=== PATIENT | female | born 1985 | race Caucasian/White ===

== ENCOUNTER 2020-08-13 10:06 | Emergency (ER) | payer MEDICAID, SELFPAY ==
[2020-08-13 10:54] VITALS: BP 124/72; PULSE 121; RESP 20; TEMP 37.3; O2SAT 100
--- NOTE | 2020-08-13 11:28 | ED.GENADULT ---
HPI - General Adult General Chief complaint: Upper Respiratory Infection Stated complaint: upper respiratory infection Source: patient Mode of arrival: ambulatory Limitations: no limitations History of Present Illness HPI narrative: Patient presents for evaluation of multiple complaints. Over the course of the last 15 days she has had several symptoms for which she is concerned. Symptoms include fever, chills, nausea, vomiting, abdominal pain, diarrhea, body aches, dizziness, sore throat, dry cough. All the symptoms have varied in duration. She currently lives with her parents and her brother, none of whom are currently sick. She indicates that her mother did have a headache around the time of her symptom onset. She has no underlying medical problems. She states her last menstrual period was just prior to the aforementioned symptoms. She has had difficulty keeping food down and consequently has taken minimal amount of medication. She states she took an [id number] painkiller yesterday. Today she has some body aches and fatigue. She has not had any chest pain or shortness of breath. She is not on contraception. Related Data Allergies Allergy/AdvReac Type Severity Reaction Status Date / Time No Known Allergies Allergy Verified 08/13/20 11:23 Review of Systems Review of Systems: Narrative: CONSTITUTIONAL: Reports fever and chills EYES: Denies visual changes, redness, or discharge. ENT: Denies rhinorrhea, congestion. Reports sore throat CARDIOVASCULAR: Denies chest pain, palpitations, or edema. RESPIRATORY: Dry cough. Denies shortness of breath GASTROINTESTINAL: Reports abdominal pain, nausea, vomiting, diarrhea. GENITOURINARY: Denies dysuria or hematuria. SKIN: Denies rash or itching. MUSCULOSKELETAL: Reports generalized myalgias NEUROLOGIC: Reports headaches, numbness and tingling in extremities. PSYCHIATRIC: Denies anxiety or depression. [facility] Past Medical History Medical History (Updated 08/13/20 @ 12:04 by Daljit Segura, [place], [place]) No pertinent past medical history Surgical History Surgical History History of bunionectomy Family History Family History Father Hypertension Heart disease Mother No pertinent past medical history Social History Social History Smoking status: Never smoker Alcohol intake: never Substance use: never Living arrangements: with family Occupation/Education: unemployed Gender identity (if verbalized by the patient): Female Spiritual care concerns: No Exam Narrative: Exam Narrative: GENERAL: Well-appearing, well-nourished, and in no acute distress. HEAD: Normocephalic, atraumatic. EYES: PERRLA and EOMI. ENT: Nares clear, no rhinorrhea or epistaxis. Mucous membranes moist. Oropharynx without tonsillar hypertrophy exudate or other lesions. Bilateral TMs pearly flores nonbulging NECK: Supple. No adenopathy or masses. No carotid bruits or JVD CHEST: Clear to auscultation. No respiratory distress. No wheezes rales or rhonchi HEART: Regular rate and rhythm. No murmur heard. Normal peripheral pulses. ABDOMEN: Soft, nontender, nondistended, normal active bowel sounds. EXTREMITIES: Normal range of motion. No edema. SKIN: Warm, dry, no rash. NEURO: No focal deficits. Alert and oriented x3. PSYCH: Normal mood and affect. Course Course Emergency Course: This is a 34-year-old female that presents with 15-days worth of multiple complaints that consist of fever, chills, nausea, vomiting, diarrhea, myalgias, headache, dizziness, dry cough. No recent identified sick contacts. Her strep, flu, mono were negative. She did have leukocytes in her urine so we will send for culture and treat empirically with Keflex. She declined chest x-ray due to cost that she is currently self-pay. I did advise t
[2020-08-13 12:17] VITALS: PULSE 120
[2020-08-13 12:23] VITALS: PULSE 122
== END 2020-08-13 12:33 | disposition home or self-care (01) ==
PROVIDERS: Emergency Provider Nurse Practitioner
DX: B34.9 Viral infection, unspecified (principal); N30.00 Acute cystitis without hematuria
CPT/HCPCS: 36416; 81003; 86308; 87081; 87086; 87088; 87804; 87880; 99203; G0463

== ENCOUNTER 2020-08-14 11:34 | Observation (INO) | payer MEDICAID, SELFPAY ==
--- NOTE | ~2020-08-14 | XR_ITS ---
EXAMINATION: XR chest 1V portable 08/14/2020 12:34 INDICATION: Tachycardia PROCEDURE: AP portable chest COMPARISON: No prior studies for comparison. FINDINGS: The lungs are clear. The cardiomediastinal silhouette is within normal limits. There are no pleural effusions. There is no pneumothorax suspected. IMPRESSION: 1: NO ACUTE CARDIOPULMONARY DISEASE. Reviewed, dictated and finalized at location A. AL INSPECTOR
--- NOTE | ~2020-08-14 | US_ITS ---
EXAMINATION: US pelvic complete w TV EXAM DATE: 08/14/2020 17:51 INDICATION: Right ovarian mass noted on CT. Pelvic mass. TECHNIQUE: Pelvic transabdominal and transvaginal sonogram was performed. There are multiple graysca le and Doppler images available for interpretation. Comparison is made to prior examination from 08/01. FINDINGS: Uterus measures 8.9 x 4.5 x 5.5 cm, with a fundal fibroid for the right measuring 2.8 cm m aximal dimension. Endometrial stripe measures 6 mm, within normal limits. There is trace free pelvic fluid. Right adnexa: The ovary measures 4.6 x 5.1 x 4.2 cm, most of this volume caused by complex cystic fis hnet appearing lesion measuring 4.5 x 3.6 x 3.4 cm, appearance most consistent with a hemorrhagic cys t. Ovarian vascular flow confirmed. Left adnexa: The ovary measures 1.5 x 2.5 x 1.6 cm and is morphologically normal. Ovarian vascular fl ow confirmed. IMPRESSION: 1. Right ovarian 4 cm lesion appearance most consistent with hemorrhagic cyst; consider 6 week follo w-up pelvic sonogram. 2. Fibroid. Reviewed, dictated and finalized at location A. [employer]AT IMPRESSION: 1. Right ovarian 4 cm lesion appearance most consistent with hemorrhagic cyst; consider 6 week follow-up pelvic sonogram. 2. Fibroid.
--- NOTE | ~2020-08-14 | CT_ITS ---
EXAMINATION: CT abdomen pelvis w con DATE: 08/14/2020 13:36 INDICATION: Leukocytosis. TECHNIQUE: Computed tomography (CT) of the abdomen and pelvis was performed with 100 mL Omnipaque 350 intravenous contrast. Automated exposure control and iterative reconstruction technique were employe d. The dose-length product was 1015.66 mGy-cm. COMPARISON: None. FINDINGS: The visualized portions of the lung bases demonstrate mild atelectasis. No pleural effusion . The heart size is normal. No pericardial effusion. There is diffuse hepatic steatosis. The gallblad josephine, spleen, pancreas, adrenal glands, and kidneys are normal. There is a 4.3 cm mass in right ovary. There are no dilated loops of bowel. The appendix is normal. There are no pathologically enlarged ly mph nodes. There is a small volume of pelvic ascites. There is a tampon in the vagina. There is mild lumbar spondylosis. IMPRESSION: 1. 4.3 cm mass in right ovary, most likely a hemorrhagic cyst. Pelvis ultrasound is recommended. Reviewed, dictated and finalized at location A. BOX COVERER IMPRESSION: 1. 4.3 cm mass in right ovary, most likely a hemorrhagic cyst. Pelvis ultrasoun d is recommended.
[2020-08-14 11:39] VITALS: BP 124/82; PULSE 132; RESP 24; TEMP 36.6; O2SAT 97
--- NOTE | 2020-08-14 11:46 | ECG_ITS ---
Measurements Intervals [place] Rate: 124 P: 66 IA: 124 QRS: 62 QRSD: 88 T: -50 QT: 276 QTc: 397 Interpretive Statements SINUS TACHYCARDIA ST-T WAVE ABNORMALITY IN ANTEROLAT/INF LEADS- CONSIDER ISCHEMIA ABNORMAL ECG Electronically Signed On 08-14-2020 12:10:46 POLEYARD SUPERVISOR by Oscar Gurrola D.O.
[2020-08-14 12:12] LABS: Basophils Absolute Auto 0.1 K/mm3 (0.0-0.1); Basophils Percent Auto 0.3 % (0.2-1.2); Eosinophils Percent Auto 0.1 % (0-4.4); Hematocrit 40.9 % (37.0-47.0); Hemoglobin 14.1 g/dL (12.0-15.0); Immature Granulocyte Absolute 1.48 K/mm3 (0.00-0.031); Immature Granulocyte Percent A 4.9 % (0-0.5); Lymphocytes Absolute Auto 0.88 K/mm3 (0.9-3.2); Lymphocytes Percent Auto 2.9 % (18.3-44.2); Mean Corpuscular HGB Conc 34.5 g/dl (32-36); Mean Corpuscular Hemoglobin 29.3 pg (26-34); Mean Platelet Volume 11.1 fl (7.4-10.4); Monocytes Absolute Auto 0.6 K/mm3 (0.1-0.6); Neutrophils Absolute Auto 27.2 K/mm3 (1.3-6.7); Neutrophils Percent Auto 89.8 % (45.5-73.1); Platelet Count Result 339 k/mm3 (150-375); Red Blood Count 4.81 M/mm3 (4.2-5.4); White Blood Count 30.2 K/mm3 (4.5-10.0)
[2020-08-14 12:28] LABS: Alanine Aminotransferase 18 U/L (4-35); Albumin Level 3.8 g/dL (3.5-5.1); Alkaline Phosphatase 87 U/L (38-126); Anion Gap 10 mmol/L (8-16); Aspartate Amino Transferase 21 U/L (14-36); Bilirubin,Total 0.9 mg/dL (0.2-1.3); Blood Urea Nitrogen 6 mg/dL (7-17); Calcium 9.3 mg/dL (8.4-10.2); Carbon Dioxide 26 mmol/L (22-30); Chloride 99 mmol/L (98-107); Estimated CRCL calculation 116 ml/min; Estimated Glomerular Filt Rate > 60; Glucose 135 mg/dL (65-105); Potassium 3.8 mmol/L (3.4-5.0); Sodium 135 mmol/L (137-145)
--- NOTE | 2020-08-14 12:43 | ED.GENADULT ---
HPI - General Adult General Chief complaint: Fever Stated complaint: n/v, fever, chills, muscle aches Time Seen by Provider: 08/14/20 11:40 Source: patient Mode of arrival: ambulatory Limitations: no limitations History of Present Illness HPI narrative: 34-year-old female Complains of a slightly more than 2-week history of almost every symptom Including at various times headaches sore throats abdominal pains nausea poor intake severe muscle aches and subjective fevers Almost the only things she has not had are dysuria or a productive cough or rash Seemed to initially start with some mild abdominal complaints and then all the other symptoms have ensued at various times She was evaluated yesterday at an urgent care and had testing done for non-Covid viral illnesses which was all negative and was treated presumptively for a possible UTI with Keflex and was asked to report to the ER for additional testing but wanted to try going home first, but has not improved Onset (ago): day(s) Related Data Home Medications Medication Instructions Recorded Confirmed acetaminophen 500 mg PO Q6H PRN 08/14/20 08/14/20 Allergies Allergy/AdvReac Type Severity Reaction Status Date / Time No Known Allergies Allergy Verified 08/14/20 11:48 Review of Systems Review of Systems: All systems reviewed & are unremarkable except as noted in HPI and below Constitutional: Constitutional: Reports chills, Reports fatigue, Reports fever(s), Denies headache(s) and Reports weakness Eyes: Eyes: Reports no additional eye complaints and Denies change in vision ENT: Denies headache(s), Denies epistaxis, Denies nasal congestion and Reports sore throat Cardiovascular: Cardiovascular: Denies chest pain, Denies leg edema, Denies palpitations and Denies dyspnea Respiratory: Respiratory: Denies cough, Denies dyspnea and Denies wheezing Gastrointestinal: Gastrointestinal: Reports abdominal pain, Denies constipation, Denies diarrhea, Reports nausea and Denies vomiting Genitourinary: Genitourinary: Denies hematuria, Denies urinary frequency, Denies nocturia and Denies dysuria Musculoskeletal: Musculoskeletal: Reports back pain, Reports myalgias, Denies deformity, Reports arthralgias, Denies joint swelling, Denies muscle weakness and Denies numbness Integumentary/Breasts: Skin/Breast: Denies rash and Denies wounds Neurologic: Reports headache(s), Denies focal weakness, Denies numbness and Denies weakness Psychiatric: Psychiatric: Reports no additional psychiatric complaints Endocrine: Endocrine: Reports fatigue and Denies palpitations Hematologic/Lymphatic: Hematologic/Lymphatic: Denies easy bleeding and Denies easy bruising Allergic/Immunologic: Allergic/Immunologic: Denies wheezing PMFSH Past Medical History Medical History (Updated 08/14/20 @ 13:34 by Alejandro Paul MD) No pertinent past medical history Surgical History Surgical History History of bunionectomy Family History Family History Father Hypertension Heart disease Mother No pertinent past medical history Social History Social History Smoking status: Never smoker Alcohol intake: never Substance use: never Gender identity (if verbalized by the patient): Female Spiritual care concerns: No Exam Const: General: no acute distress, well developed, alert and awake Nutritional Appearance: well nourished Orientation/consciousness: patient oriented x3 (alert) Limitations: no limitations HENMT: Head: normal to inspection, normocephalic and atraumatic Ears: external ears normal General nose exam: No nasal discharge present and no epistaxis Face and sinus: face symmetric Eyes: Conjunctivae: conjunctivae normal Sclera: sclerae normal EOM: EOMs intact bilaterally Neck: Neck: normal visu
[2020-08-14 12:53] LABS: Lipase 31 U/L (23-300)
[2020-08-14 12:54] LABS: Lactic Acid Reflex 2.3 mmol/L (0.7-2.1)
[2020-08-14 12:55] LABS: CRP 32.2 mg/dL (<1.0)
[2020-08-14] MEDS: LACTATED RINGERS 1,000 ML 999 ML IV CONT ×2 (13:01→14:12)
[2020-08-14] MEDS: ACETAMINOPHEN 500 MG TABLET 1000 MG PO (13:01)
[2020-08-14 13:28] LABS: D Dimer 0.31 ug/mL (<0.48)
[2020-08-14 13:29] LABS: Creatine Kinase 25 U/L (30-135)
[2020-08-14 13:45] VITALS: BP 124/82; PULSE 109; RESP 23; O2SAT 98
[2020-08-14 13:47] LABS: Free T4 Free Thyroxine 1.69 ng/mL (0.78-2.19)
[2020-08-14 14:11] VITALS: BP 104/67; PULSE 102; RESP 18; O2SAT 100
--- NOTE | 2020-08-14 15:32 | ADMGEN ---
This patient, Ariadna Mcneil, was admitted to [facility] Surg Room 329-01. Patient/family oriented to hospital policies and general routines including ID bracelet, bed and alarms, visiting hours, pain management, procedures, bathroom and other care routines, personal items, smoking policy, room service/diet, and visiting hours. Information on how to activate the Rapid Response Team has been discussed. Patient/Family are encouraged to report perceived risks to care and to ask questions if they do not understand what they are told or what they should do.
[2020-08-14 15:35] VITALS: BP 99/67; PULSE 108; RESP 18; TEMP 36.7; O2SAT 100
[2020-08-14 15:40] VITALS: BMI 28.0
[2020-08-14 15:46] LABS: Reflex Lactic Acid Yes or No Add Lactic
[2020-08-14 16:40] LABS: Lactic Acid 1.2 mmol/L (0.7-2.1)
--- NOTE | 2020-08-14 17:20 | PC.NURSE ---
patient to US per w/c
--- NOTE | 2020-08-14 17:55 | PC.NURSE ---
patient returning from US.
[2020-08-14] MEDS: ACETAMINOPHEN 325 MG TABLET 650 MG PO (18:54)
[2020-08-14 19:11] LABS: Add Urine Microscopic? YES; Appearance Urine Clear (Clear); Bacteria Urine Trace /hpf; Bilirubin Urine Negative (Negative); Blood Urine 1+ (Negative); Color Urine Yellow (Yellow); Glucose Urine UA Negative (Negative); Ketones Urine 1+ mg/dL (Negative); Leukocyte Esterase Ur 3+ LEU/UL (Negative); Mucus Urine Rare /lpf; Nitrate Urine Negative (Negative); Protein Urine 1+ mg/dL (Negative); Squamous Epithelial Cell Urine Many /hpf (Few); WBC Urine 21-30 /hpf
[2020-08-14 19:12] LABS: Specific Grav Ur 1.056 (1.001-1.035)
[2020-08-14 20:00] VITALS: BP 111/62; PULSE 110; RESP 20; TEMP 36.7; O2SAT 100
--- NOTE | 2020-08-14 20:00 | PM.IMHP ---
H&P: HPI History of Present Illness Date/Time: 08/14/20 20:00 Chief complaint: Multiple complaints. Narrative: Ariadna Mcneil is a very pleasant, previously healthy 34-year-old female who presented to the emergency department earlier today from home with multiple complaints. Her story is unusual, and she first began feeling poorly the Friday after Thanksgi ( 07/29/2020) at which time she notes generalized malaise. The following day she developed nausea and vomiting, estimating that she vomited 16 to 20 times for the next 4 days. She had several episodes of diarrhea a day as well, which lasted nearly 1 week. Her throat then began to feel sore, occasionally with difficulty swallowing due to the pain which she describes as a sharp and almost knife-like pain. For nearly a week she had subjective fever and however there was no thermometer at home. She currently lives with her parents and brother, and none of them have had similar symptoms however her mother did have a headache a day or so after Thanksgi. The patient herself also has a dull, aching mainly frontal headache which has been almost constant. She was seen at urgent care yesterday for evaluation as she has more recently been having diffuse myalgias. She tested negative for influenza, strep, and mononucleosis. A urinalysis was leukocyte esterase positive and she was given a prescription for cephalexin however she has no symptoms of such and her urine culture is now final, growing out multiple organisms not indicative of UTI. She was tachycardic at that time, in the 110s to 120s, although she is asymptomatic with that. The physician who saw her at [facility] encouraged her to come to the emergency department yesterday however she declined due to lapse in insurance. Since then she has had progressive myalgias to the point where she has a difficult time moving due to severe pain. It is now to the point where she has significant pain even lifting her arms and legs. It sounds as though the pain is sharp and shooting in nature when moving, and is aching at rest. She denies recent travel but within the last several months she moved back to the area to stay with her parents as she is in between jobs. Prior to that she was living in [place]. She considers herself and indoorsy type person and denies tick bites and mosquito bites over the summer despite being in [place]. She has not had a documented fever. No history of IV drug use. She denies open wounds. No angioedema or urticaria although she does note palmar erythema and pruritus which began about the same time as her other symptoms. She denies vertigo, ataxia, auditory and visual changes, focal weakness, joint swelling, rash, midline vertebral tenderness, lymphadenopathy, dysphagia, chest pain, palpitations, cough, shortness of breath, hematemesis, melena, hematochezia, dysuria, hematuria, vaginal discharge, concerns for STIs, abdominal pain, and pelvic pain. No history of autoimmune disease or malignancy. Review of Systems Review of Systems: Narrative: 12 systems were reviewed with pertinent positives and negatives as per HPI. She lost a few lb with the vomiting and diarrhea but that has since stabilized. No history of thyroid disease or symptoms of such. Last menstrual period was approximately 3 weeks ago. No jaw claudication. No depression, anxiety, or psychiatric illness. Except as documented, all other systems were reviewed and are negative. [facility] Past Medical History Medical History (Updated 08/15/20 @ 00:23 by Estela Chaney PA-C) No pertinent past medical history Surgical History Surgical History (Updated 08/15/20 @ 00:23 by Estela Chaney PA-C) History of bunionectomy of left great toe (~2009) Family History Family History (Updated 08/15/20 @ 00:13 by Estela Chaney PA-C) Father Hypertension Heart disease Mother No pertinent past medical history Sibling Harrison syndrome Social History Soc
[2020-08-14 23:00] LABS: SARS-CoV-2 RNA PCR Negative
[2020-08-15] VITALS: BP 112/62; PULSE 105; RESP 20; TEMP 36.9; O2SAT 100
[2020-08-15] MEDS: ACETAMINOPHEN 325 MG TABLET 650 MG PO (02:35)
[2020-08-15 04:00] VITALS: BP 114/83; PULSE 104; RESP 18; TEMP 36.9; O2SAT 97
[2020-08-15] MEDS: LACTATED RINGERS 1,000 ML 150 ML IV CONT (04:01)
[2020-08-15] MEDS: SODIUM CHLORIDE 0.9% IV 1,000 ML 100 ML IV CONT (06:18)
[2020-08-15 06:50] LABS: Basophils Percent Auto 0.2 % (0.2-1.2); Eosinophils Absolute Auto 0.1 K/mm3 (0-0.3); Eosinophils Percent Auto 0.3 % (0-4.4); Hematocrit 33.7 % (37.0-47.0); Hemoglobin 11.3 g/dL (12.0-15.0); Immature Granulocyte Percent A 0.6 % (0-0.5); Lymphocytes Absolute Auto 1.09 K/mm3 (0.9-3.2); Lymphocytes Percent Auto 6.4 % (18.3-44.2); Mean Corpuscular HGB Conc 33.5 g/dl (32-36); Mean Corpuscular Hemoglobin 28.6 pg (26-34); Mean Corpuscular Volume 85.3 fl (80-100); Mean Platelet Volume 11.1 fl (7.4-10.4); Monocytes Absolute Auto 0.3 K/mm3 (0.1-0.6); Neutrophils Absolute Auto 15.3 K/mm3 (1.3-6.7); Neutrophils Percent Auto 90.5 % (45.5-73.1); Platelet Count Result 291 k/mm3 (150-375); Red Blood Count 3.95 M/mm3 (4.2-5.4); Red Cell Distribution Width 13.9 % (11.5-14.5); White Blood Count 16.9 K/mm3 (4.5-10.0)
[2020-08-15 07:17] LABS: Erythrocyte Sedimentation Rate 56 mm/hr (0-20)
[2020-08-15 07:38] LABS: Vitamin D 25 Hydroxy 18.4 ng/mL
[2020-08-15 07:51] LABS: Creatine Kinase < 20 U/L (30-135)
[2020-08-15 07:52] LABS: Alanine Aminotransferase 13 U/L (4-35); Alkaline Phosphatase 70 U/L (38-126); Anion Gap 6 mmol/L (8-16); Aspartate Amino Transferase 15 U/L (14-36); Bilirubin,Total 0.5 mg/dL (0.2-1.3); Blood Urea Nitrogen 6 mg/dL (7-17); Calcium 8.6 mg/dL (8.4-10.2); Carbon Dioxide 26 mmol/L (22-30); Chloride 103 mmol/L (98-107); Estimated CRCL calculation 153 ml/min; Estimated Glomerular Filt Rate > 60; Glucose 107 mg/dL (65-105); Lactate Dehydrogenase 306 U/L (313-618); Potassium 3.2 mmol/L (3.4-5.0); Sodium 135 mmol/L (137-145)
[2020-08-15 07:57] LABS: CRP 28.4 mg/dL (<1.0)
[2020-08-15] MEDS: traMADol HCL (*CRX) 50 MG TABLET PO ×3 (08:35→21:46)
[2020-08-15] MEDS: POTASSIUM CHLORIDE 20 MEQ TABLET 40 MEQ PO (08:35)
--- NOTE | 2020-08-15 11:23 | WPDNEURCNPN ---
Assessment and Plan Assessment and plan (1) Systemic inflammatory response syndrome: Code(s): R65.10 - Systemic inflammatory response syndrome (SIRS) of non-infectious origin without acute organ dysfunction Status: Acute (2) Myalgia: Code(s): M79.10 - Myalgia, unspecified site Status: Acute (3) Mass of right ovary: Code(s): N83.8 - Other noninflammatory disorders of ovary, fallopian tube and broad ligament Status: Acute (4) Leukocytosis: Code(s): D72.829 - Elevated white blood cell count, unspecified Status: Acute Additional Plan Multiple generalized complaints ,nonfocal neurological examination though she does have leukocytosis with elevated CRP and abnormal UA further evaluation is being carried out, CK is less than 20 and cultures are pending will follow recheck her tomorrow Consult date: 08/15/20 Time Seen: 11:20 HPI: Ariadna Mcneil is a 34 year old right-handed female admitted to the hospital through the emergency room with the complaints that he started feeling poorly by Friday after Thanksgiving that is on July 29, 2020 along with the generalized malaise subsequently she developed nausea and vomiting 16 to 20 times with the next 4 days along with several episodes of diarrhea lasting for almost 1 week subsequently her throat became sore, fecal disease in swallowing she lives with the family none of the other family members had the same symptomatology but she had dull frontal headache she was seen in the urgent care yesterday for evaluation and at present she is complaining of diffuse muscle aches he tested negative for influenza a strep mono a urine leukocyte esterase is positive she received a prescription for cephalexin with a urine culture is not final growing multiple organism she is complaining of pain lifting her upper and lower extremities, has no other general symptomatology. pertinent history includes Clovis syndrome in sibling. Evaluation up until now revealed her to have leukocytosis with WBC 16.9 hemoglobin 11.3 and platelet count of 291 BMP only significant for potassium of 3.2 C reactive protein is 28.4 with CPK only less than 20 and aldolase is pending vitamin-D 18.4 urine specific gravity 1056 x-ray chest negative and pelvic and transvaginal ultrasound and abdominal pelvis CT are compatible with the right ovarian hemorrhagic cyst, at present she is receiving IV fluids Review of Systems Review of Systems: All systems reviewed & are unremarkable except as noted in HPI and below PMFSH Past Medical History Medical History No pertinent past medical history Surgical History Surgical History History of bunionectomy of left great toe (~2009) Family History Family History Father Hypertension Heart disease Mother No pertinent past medical history Sibling Harrison syndrome Social History Social History Social History: The patient is currently living in [place] with her parents and brother. Prior to that she was living in [place]. 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 She denies alcohol, tobacco, and illicit substance abuse. She designates her mother as her surrogate decision maker and wishes to be a full code. Gender identity (if verbalized by the patient): Female Spiritual care concerns: No Meds Home Medications and Allergies Home Medications Medication Instructions Recorded Confirmed Type cephalexin [Keflex] 500 mg PO Q12H #14 cap 08/13/20 08/14/20 Rx ondansetron 4 mg PO Q6H PRN #15 tablet 08/13/20 08/14/20 Rx acetaminophen 500 mg PO Q6H PRN 08/14/20 08/14/20 History Allergies Allergy/AdvReac Type Severity Reaction Status Date / Time No Known Allergies Allergy Verified 08/14/20 17:21 Vital Signs Vital Signs
--- NOTE | 2020-08-15 13:30 | PC.NURSE ---
faxed SBAR to [facility], pt will be moving units due to bed availability
[2020-08-15 14:00] VITALS: BP 112/69; PULSE 108; RESP 16; TEMP 36.2; O2SAT 99
--- NOTE | 2020-08-15 14:02 | PC.NURSE ---
report called to Khushbu SANTIAGO, reviewed plan of care and pt condition
[2020-08-15 14:48] VITALS: BP 118/74; PULSE 113; RESP 18; TEMP 36.5; O2SAT 98
--- NOTE | 2020-08-15 14:50 | PC.NURSE ---
pt transferred to [facility] via wheelchair, doing well, in good spirits
--- NOTE | 2020-08-15 14:59 | PC.NURSE ---
Yovany arrived per wheelchair with APPEALS BOARD REFEREE stood by asst to her been 219 bed 1. Placed bed in low position with call light in reach. Iv hep lock is intact fluids are off. Pt c/o generalized pain head to toe that is achy and intermittently sharp at a 7/10. Medicated with 50 mg of Tramadol po.
--- NOTE | 2020-08-15 15:28 | PM.IMPN ---
Progress Note: A&P Assessment and Plan (1) Systemic inflammatory response syndrome: Code(s): R65.10 - Systemic inflammatory response syndrome (SIRS) of non-infectious origin without acute organ dysfunction Status: Acute Assessment and Plan: Culture so far negative urine and blood. No white count has fallen. Rehydrated and nausea and vomiting has subsided. CK normal with elevated sed rate of 56. Await final results of cultures and follow white count Echo pending (2) Myalgia: Code(s): M79.10 - Myalgia, unspecified site Status: Acute Assessment and Plan: As above CK normal without Solange pending and sed rate slightly elevated. Nonspecific finding at this point (3) Leukocytosis: Code(s): D72.829 - Elevated white blood cell count, unspecified Status: Acute Assessment and Plan: Probable stress from nausea vomiting. White count dropped to 16,000 today and will follow-up in a.m. and await final results of cultures Echo pending (4) Mass of right ovary: Code(s): N83.8 - Other noninflammatory disorders of ovary, fallopian tube and broad ligament Status: Acute Assessment and Plan: Sees to be simple hemorrhagic cyst will need follow-up in the future Subjective Date/time seen: 08/15/20 15:28 Interval history: Date of visit 08/15. 34-year-old previously healthy white female admitted with myalgias, nausea and vomiting and malaise. Been using anti-inflammatories for the pain without relief. No recent travel her suggestion of any acute infectious process but had marked leukocytosis on admission. Today feels better GI ricardo but still sore and pain, significantly CK is normal Exam Narrative: Exam Narrative: Blood pressure 118/74 pulse is 110 she is afebrile Neck supple no adenopathy thyromegaly carotid bruits Lungs clear no murmurs or gallops CV regular rate rhythm no murmurs slightly tacky Abdomen is soft nontender no masses Extremities without edema Integument no rash there is some Balderas erythema Objective Data Vital Signs Vital Signs: Vital Signs - 24 hr 08/14/20 15:35 08/14/20 20:00 08/15/20 00:00 Temperature 36.7 C 36.7 C 36.9 C Pulse Rate 108 H 110 H 105 H Respiratory Rate 18 20 20 Blood Pressure 99/67 L 111/62 112/62 Pulse Oximetry 100 100 100 08/15/20 04:00 08/15/20 14:00 08/15/20 14:48 Temperature 36.9 C 36.2 C L 36.5 C Pulse Rate 104 H 108 H 113 H Respiratory Rate 18 16 18 Blood Pressure 114/83 112/69 118/74 Pulse Oximetry 97 99 98 Intake/Output Intake/Output: Intake & Output 08/12/20 08/13/20 08/14/20 08/15/20 23:59 23:59 23:59 23:59 Intake Total 1250 800 Output Total 1000 Balance 1250 -200 Meds/Results Medications: Active Medications Generic Name Dose Route Start Last Admin Trade Name Freq PRN Reason Stop Dose Admin Acetaminophen 650 mg 08/14/20 13:34 08/15/20 02:35 Acetaminophen 325 Mg Tablet PO 650 mg Q4H PRN Administration Mild Pain (1-3) or Fever Ondansetron HCl 4 mg 08/14/20 13:34 Ondansetron Inj 4 Mg/2 Ml Vial IV PUSH Q4H PRN Nausea Tramadol HCl 50 mg 08/15/20 07:55 08/15/20 14:55 Tramadol Hcl (*Crx) 50 Mg Tablet PO 50 mg Q6H PRN Administration Pain Rated 4-6 Radiology Results: ITS Impressions Chest X-Ray 08/14/20 12:37 IMPRESSION: 1: NO ACUTE CARDIOPULMONARY DISEASE. Abdomen/Pelvis CT 08/14/20 13:51 IMPRESSION: 1. 4.3 cm mass in right ovary, most likely a hemorrhagic cyst. Pelvis ultrasound is recommended. Pelvic/Transvag US 08/14/20 17:59 IMPRESSION: 1. Right ovarian 4 cm lesion appearance most consistent with hemorrhagic cyst; consider 6 week follow-up pelvic sonogram. 2. Fibroid. Labs Labs: Laboratory Results - last 24 hr 08/14/20 08/14/20 08/14/20 11:52 16:21 19:01 WBC RBC Hgb Hct MCV MCH MCHC RDW Plt Count MPV Immature Gran % (Auto) Neut % (Auto)
[2020-08-15] MEDS: ERGOCALCIFEROL 50,000 UNIT CAPSULE 50000 UNITS PO (17:00)
--- NOTE | 2020-08-15 17:07 | PDONCCN ---
HPI - Date of Consult Date/Time: 08/15/20 17:07 Requesting Physician: Chen Tsang MD Primary Care Provider: VAN LOADER PHYSICIAN - Consult Narrative Reason for consult: Leukocytosis Narrative: Ariadna Mcneil is a 34 year old female who has been in good health the lab generalized myalgia along with feeling tired and fatigue and malaise about 2 weeks ago. She also developed intermittent nausea vomiting and diarrhea. She was complaining of sore throat. She was tested negative for COVID infection. She denies any chest pain and shortness of breath. He denies any rash. Due to generalized musculoskeletal pain she was having difficulty with ambulation. Her labs showed elevated WBC count of 30,000 on admission. She had CT scan done that showed 4.3 cm mass in the right ovary.. Pelvic ultrasound showed likely hemorrhagic cyst. Today she is already feeling better. Denies any further nausea and diarrhea. Denies any fevers and chills. Her white count has improved and down to 16,000. Denies any new lump lungs and lymphadenopathy. She has lost 11 lb weight in last 2-3 weeks. Review of Systems - Review of Systems All systems reviewed & are unremarkable except as noted in HPI and bel - Neurologic Reports headache(s), Denies focal weakness, Denies numbness, Denies weakness PMFSH Medical History: Medical History (Last Reviewed 08/15/20 @ 11:31 by Raoul Jon MD) No pertinent past medical history Surgical History: Surgical History (Last Reviewed 08/15/20 @ 11:31 by Raoul Jon MD) History of bunionectomy of left great toe Onset Date: ~2009 Family History: Family History (Last Reviewed 08/15/20 @ 11:31 by Raoul Jon MD) Father Hypertension Heart disease Mother No pertinent past medical history Sibling Harrison syndrome - Social History Social History: Social History (Last Reviewed 08/15/20 @ 11:31 by Raoul Jon MD) Gender Identity: Gender identity (if verbalized by the patient): Female Others: Spiritual care concerns: No Meds Home Medications Medication Instructions Recorded Confirmed Type cephalexin [Keflex] 500 mg PO Q12H #14 cap 08/13/20 08/14/20 Rx ondansetron 4 mg PO Q6H PRN #15 tablet 08/13/20 08/14/20 Rx acetaminophen 500 mg PO Q6H PRN 08/14/20 08/14/20 History Allergies Allergy/AdvReac Type Severity Reaction Status Date / Time No Known Allergies Allergy Verified 08/14/20 17:21 Results - Labs CBC & Chem 7: 08/15/20 06:33 08/15/20 06:33 Labs: Short CBC 08/15/20 Range/Units 06:33 WBC 16.9 H (4.5-10.0) K/mm3 Hgb 11.3 L (12.0-15.0) g/dL Hct 33.7 L (37.0-47.0) % Plt Count 291 (150-375) k/mm3 BMP 08/15/20 06:33 Sodium 135 L Potassium 3.2 L Chloride 103 Carbon Dioxide 26 BUN 6 L Creatinine 0.50 L Glucose 107 H Calcium 8.6 Cardiac Enzymes 08/15/20 Range/Units 06:33 Total Creatine Kinase < 20 L (30-135) U/L Liver Function 08/15/20 Range/Units 06:33 Total Bilirubin 0.5 (0.2-1.3) mg/dL AST 15 (14-36) U/L ALT 13 (4-35) U/L Alkaline Phosphatase 70 (38-126) U/L Albumin 3.0 L (3.5-5.1) g/dL Urine 08/14/20 Range/Units 19:01 Urine Color Yellow (Yellow) Urine Appearance Clear (Clear) Urine pH 5.0 (5.0-9.0) Ur Specific [place] 1.056 H (1.001-1.035) Urine Protein 1+ H (Negative) mg/dL Urine Glucose (UA) Negative (Negative) mg/dL Assessment and Plan - Additional Plan Leukocytosis. This is a pleasant 34-year-old female who has been in good health the low sudden onset of musculoskeletal discomfort malaise, nausea vomiting and diarrhea. CT scan only showed 4.3 cm right ovarian cyst likely hemorrhagic cyst. She denies any fever chills. She has lost 11 lb weight just recently. On my examination there is no evidence of lymphadenopathy and hepatosplenomegaly. CT scan also showed no evidence of hepatosplenomegaly. Re
--- NOTE | 2020-08-15 17:22 | PC.NURSE ---
pt transferred via wheelchair to [facility], doing well, in good spirits
--- NOTE | 2020-08-15 17:36 | WPDINFPN2 ---
Progress Note: A&P Assessment and Plan (1) Leukocytosis: Code(s): D72.829 - Elevated white blood cell count, unspecified Status: Acute Assessment and Plan: leukocytosis, unknown cause, no infection identified yet. Myalgias are her most prominent symptom. REC studies in process, no empiric antimicrobials. Subjective Date/time seen: 08/15/20 17:36 Objective Data Vital Signs Vital Signs: Vital Signs - 24 hr 08/14/20 20:00 08/15/20 00:00 08/15/20 04:00 Temperature 36.7 C 36.9 C 36.9 C Pulse Rate 110 H 105 H 104 H Respiratory Rate 20 20 18 Blood Pressure 111/62 112/62 114/83 Pulse Oximetry 100 100 97 08/15/20 14:00 08/15/20 14:48 Temperature 36.2 C L 36.5 C Pulse Rate 108 H 113 H Respiratory Rate 16 18 Blood Pressure 112/69 118/74 Pulse Oximetry 99 98 Intake/Output Intake/Output: Intake & Output 08/12/20 08/13/20 08/14/20 08/15/20 23:59 23:59 23:59 23:59 Intake Total 1250 800 Output Total 1000 Balance 1250 -200 Meds/Results Medications: Active Medications Generic Name Dose Route Start Last Admin Trade Name Freq PRN Reason Stop Dose Admin Acetaminophen 650 mg 08/14/20 13:34 08/15/20 02:35 Acetaminophen 325 Mg Tablet PO 650 mg Q4H PRN Administration Mild Pain (1-3) or Fever Enoxaparin Sodium 40 mg 08/15/20 21:00 Enoxaparin 40 Mg/0.4 Ml Syringe SUB-Q HS MARLENA Ondansetron HCl 4 mg 08/14/20 13:34 Ondansetron Inj 4 Mg/2 Ml Vial IV PUSH Q4H PRN Nausea Tramadol HCl 50 mg 08/15/20 07:55 08/15/20 14:55 Tramadol Hcl (*Crx) 50 Mg Tablet PO 50 mg Q6H PRN Administration Pain Rated 4-6 Radiology Results: ITS Impressions Chest X-Ray 08/14/20 12:37 IMPRESSION: 1: NO ACUTE CARDIOPULMONARY DISEASE. Abdomen/Pelvis CT 08/14/20 13:51 IMPRESSION: 1. 4.3 cm mass in right ovary, most likely a hemorrhagic cyst. Pelvis ultrasound is recommended. Pelvic/Transvag US 08/14/20 17:59 IMPRESSION: 1. Right ovarian 4 cm lesion appearance most consistent with hemorrhagic cyst; consider 6 week follow-up pelvic sonogram. 2. Fibroid. Labs Labs: Laboratory Results - last 24 hr 08/14/20 08/14/20 08/15/20 11:52 19:01 06:33 WBC 16.9 H RBC 3.95 L Hgb 11.3 L Hct 33.7 L MCV 85.3 MCH 28.6 MCHC 33.5 RDW 13.9 Plt Count 291 MPV 11.1 H Immature Gran % (Auto) 0.6 H Neut % (Auto) 90.5 H Lymph % (Auto) 6.4 L [place] % (Auto) 2.0 L Eos % (Auto) 0.3 Baso % (Auto) 0.2 Lymph # (Auto) 1.09 [place] # (Auto) 0.3 Eos # (Auto) 0.1 Baso # (Auto) 0.0 Abs Immat Gran (auto) 0.10 H Absolute Neuts (auto) 15.3 H Absolute Nucleated RBC 0.0 Nucleated RBC % 0.0 ESR 56 H Sodium Potassium Chloride Carbon Dioxide Anion Gap BUN Creatinine Estim Creat Clear Calc Estimated GFR Glucose Calcium Total Bilirubin AST ALT Alkaline Phosphatase Lactate Dehydrogenase Total Creatine Kinase C-Reactive Protein Total Protein Albumin Vitamin D 25-Hydroxy Urine Color Yellow Urine Appearance Clear Urine pH 5.0 Ur Specific [place] 1.056 H Urine Protein 1+ H Urine Glucose (UA) Negative Urine Ketones 1+ H Ur Blood (Man) 1+ H Urine Nitrate Negative Urine Bilirubin Negative Urine Urobilinogen 4.0 H Leukocyte Esterase Rfl 3+ H Urine RBC 11-20 H Urine WBC 21-30 H Ur Squamous Epith Cells Many H Urine Bacteria Trace Urine Mucus Rare SARS-CoV-2 RNA (RT-PCR) Negative 08/15/20 08/15/20 08/15/20 06:33 06:33 06:33 WBC RBC Hgb Hct MCV MCH MCHC RDW Plt Count MPV Immature Gran % (Auto) Neut % (Auto) Lymph % (Auto) [place] % (Auto) Eos % (Auto) Baso % (Auto) Lymph # (Auto) [place] # (Auto) Eos # (Auto) Baso # (Auto) Abs Immat Gran (auto) Absolute Neuts (auto) Absolute N
[2020-08-15 18:00] VITALS: PULSE 100; RESP 16; TEMP 36.1; O2SAT 99
--- NOTE | 2020-08-15 18:24 | PC.NURSE ---
Ariadna has bilateral hand grasp strength even though she states unable to move her rt side much earlier in her illness. States she feels generalized weakness.
--- NOTE | 2020-08-15 19:38 | CONS_ITS ---
DATE OF CONSULTATION: 08/15/2020 REASON FOR CONSULTATION: Leukocytosis. HISTORY OF PRESENT ILLNESS: A 34-year-old female without past medical history. She began feeling ill just over 2 weeks prior to admission with nausea, vomiting, and anorexia. Since then, she has developed myalgias, sore throat, fatigue, dyspnea, subjective fever without confirmation with a measuring device, headache, malaise, and dizziness. She has had no rigors nor too night sweats. She was seen in Urgent Care 1 day before admission, given cephalexin without relief in symptoms, presented back to the hospital, was noted to have leukocytosis and was admitted. She has not been given any further antimicrobials. She has been on no cortisone or prednisone preparations. No other recent antibiotics. She has had no animal nor tick bites. Had no skin rash, arthralgias, in particular, prior such episodes of leukocytosis or otherwise. ALLERGIES: SEE CHART. HABITS: No alcohol, tobacco, illicit drugs. PRESENT MEDICATIONS: List reviewed. PAST MEDICAL HISTORY: Bunionectomy with a pin still in place. Otherwise, no implanted devices and she has no chronic medical illnesses. FAMILY HISTORY: Not pertinent to her present illness. SOCIAL HISTORY: Formerly lived in [place], now here staying with her parents and a brother, all of whom have been healthy. REVIEW OF SYSTEMS: Musculoskeletal, constitutional, respiratory, GI, , CARD TENDER, otherwise negative. PHYSICAL EXAMINATION: GENERAL: Appears her actual age, in no distress. VITAL SIGNS: Afebrile since arrival, pulse 113, respirations 18, 98% saturation, and blood pressure 118/74. SKIN: No rashes. Warm and dry. NODES: No axillary or cervical adenopathy. EENT: Conjunctivae are normal. Pupils equal, round. Oral mucosa is normal. NECK: No meningismus, mass, or thyromegaly. LUNGS: Clear to auscultation and percussion. CARDIAC: Tachycardic, regular. No murmurs or gallops. Pulses 2+. ABDOMEN: Soft, nontender. No masses. No organomegaly. EXTREMITIES: Well perfused. No clubbing, cyanosis, edema. No evidence of infection in the left first toe. RADIOLOGY: CT of the abdomen and pelvis, chest x-ray and pelvic ultrasound taken together, indicate an ovarian cyst. No other abnormalities. LABORATORY DATA: Her white count 13.2 on admission, now 16.9. Differential showed a mild left shift. Remainder of her CBC, hemoglobin 11.3 and platelets 291. ESR 56. Her chemistries with mild hyponatremia, hypokalemia, LDH 306, CRP 28, albumin 3.0. Aldolase is pending. Previous group A strep screen and Monospot were nonreactive. Her urinalysis, multiple abnormalities, not particularly suggestive of infection. Coronavirus assay was nonreactive. ASSESSMENT: Multi symptom acute illness with subjective fever and also with leukocytosis, latter is now improving. She may have had a recent viral infection, not due to Novel Coronavirus. She has no apparent bacterial, mycobacterial, fungal, parasitic infection actively. RECOMMENDATIONS: 1. Agree no empiric antibiotics. 2. Multiple studies in process including blood cultures. 3. Clinical followup including white blood cell count. Thank you very much for asking me to see her. MARIANELA BRYAN M.D. WATCH CRYSTAL GRINDER WATCH CRYSTAL GRINDER D I MT: Breana
[2020-08-15] MEDS: ENOXAPARIN 40 MG/0.4 ML SYRINGE SUB-Q (21:20)
[2020-08-15 22:00] VITALS: BP 112/76; PULSE 93; RESP 12; TEMP 35.6; O2SAT 99
[2020-08-16 05:20] LABS: Basophils Percent Auto 0.4 % (0.2-1.2); Eosinophils Absolute Auto 0.3 K/mm3 (0-0.3); Eosinophils Percent Auto 3.6 % (0-4.4); Hematocrit 34.7 % (37.0-47.0); Hemoglobin 11.3 g/dL (12.0-15.0); Immature Granulocyte Absolute 0.02 K/mm3 (0.00-0.031); Immature Granulocyte Percent A 0.3 % (0-0.5); Lymphocytes Absolute Auto 1.76 K/mm3 (0.9-3.2); Lymphocytes Percent Auto 25.5 % (18.3-44.2); Mean Corpuscular HGB Conc 32.6 g/dl (32-36); Mean Corpuscular Hemoglobin 28.8 pg (26-34); Mean Corpuscular Volume 88.5 fl (80-100); Mean Platelet Volume 10.9 fl (7.4-10.4); Monocytes Absolute Auto 0.3 K/mm3 (0.1-0.6); Monocytes Percent Auto 4.5 % (2.6-8.5); Neutrophils Absolute Auto 4.5 K/mm3 (1.3-6.7); Neutrophils Percent Auto 65.7 % (45.5-73.1); Platelet Count Result 292 k/mm3 (150-375); Red Blood Count 3.92 M/mm3 (4.2-5.4); Red Cell Distribution Width 14.4 % (11.5-14.5); White Blood Count 6.9 K/mm3 (4.5-10.0)
[2020-08-16 05:42] LABS: Alanine Aminotransferase 11 U/L (4-35); Albumin Level 2.8 g/dL (3.5-5.1); Alkaline Phosphatase 69 U/L (38-126); Anion Gap 6 mmol/L (8-16); Aspartate Amino Transferase 14 U/L (14-36); Bilirubin,Total 0.3 mg/dL (0.2-1.3); Blood Urea Nitrogen 9 mg/dL (7-17); Calcium 8.6 mg/dL (8.4-10.2); Carbon Dioxide 28 mmol/L (22-30); Chloride 101 mmol/L (98-107); Estimated CRCL calculation 153 ml/min; Estimated Glomerular Filt Rate > 60; Glucose 119 mg/dL (65-105); Potassium 3.4 mmol/L (3.4-5.0); Sodium 135 mmol/L (137-145)
[2020-08-16] MEDS: traMADol HCL (*CRX) 50 MG TABLET PO ×3 (05:56→20:43)
[2020-08-16 06:00] VITALS: BP 105/76; PULSE 83; RESP 14; TEMP 36.4; O2SAT 99
--- NOTE | 2020-08-16 06:00 | ECHO_ITS ---
Patient Info Name: Ariadna Mcneil Age: 34 years : 1985 Gender: Female Ht: 69 in Wt: 189 lbs BSA: 2.06 m2 HR: 74 bpm BP: 114 / 83 mmHg Heart Rhythm: Sinus Rhythm Technical Quality: Good Exam Date: 08/16/2020 10:26 AM Exam Location: [facility] Patient Status: Inpatient Admit Date: 08/14/2020 Staff Ordering Physician: Alejandro Paul MD Chocolate Refining Roller: Darion Mchperson RDCS Attending Provider: Chen Tsang MD Referring Physician: Humberto KAPADIA; Exam Type: CA echo doppler color flow Study Info Indications 780.6 - Fever Complete two-dimensional, color flow and Doppler transthoracic echocardiogram is performed. History/Risk Factors Leukocytosis and fever of unknown origin. Summary 1. Complete two-dimensional, color flow and Doppler transthoracic echocardiogram is performed. 2. Left ventricular chamber dimension is normal. 3. Left ventricular systolic function is normal, estimated at 55-60%. 4. There is no increased left ventricular wall thickness. 5. The left ventricular diastolic function is normal. 6. Left atrial chamber dimension is mildly enlarged. 7. There is mild mitral valve regurgitation. 8. There is mild tricuspid valve regurgitation. 9. There is no obvious evidence of vegetation/endocarditis, but this is not a definitive study for analysis. Left Ventricle Left ventricular chamber dimension is normal. Left ventricular systolic function is normal, estimated at 55-60%. There is no increased left ventricular wall thickness. The left ventricular diastolic function is normal. Right Ventricle Right ventricular chamber dimension is normal. Right ventricular systolic function is normal. Left Atria Left atrial chamber dimension is mildly enlarged. Right Atria Right atrial chamber dimension is normal. Atrial Septum Intact interatrial septum visualized by color flow imaging. Aortic Valve The aortic valve is probable trileaflet. There is no aortic valve sclerosis. There is no aortic valve stenosis. There is trace aortic valve regurgitation. Pulmonic Valve The pulmonic valve is normal. There is no pulmonic valve stenosis. There is trace pulmonic regurgitation. Mitral Valve The mitral valve has normal leaflets. There is no mitral valve stenosis. There is mild mitral valve regurgitation. Tricuspid Valve The tricuspid valve leaflets are normal. There is no significant tricuspid valve stenosis. There is mild tricuspid valve regurgitation. No pulmonary hypertension, estimated pulmonary arterial systolic pressure is 33 mmHg. Other Findings There is no obvious evidence of vegetation/endocarditis, but this is not a definitive study for analysis. Pericardium/Pleural The pericardium appears normal. There is trivial pericardial effusion. Inferior Vena Cava Normal inferior vena cava with <50% collapse upon inspiration consistent with elevated right atrial pressure, 10 mmHg. Aorta The aortic root size at the sinus of Valsalva is normal. Left Ventricular Outflow Tract Name Value Normal LVOT 2D LVOT Diameter 1.8 cm LVOT Doppler LVOT
[2020-08-16] MEDS: ONDANSETRON INJ 4 MG/2 ML VIAL IV PUSH (09:16)
--- NOTE | 2020-08-16 12:41 | PC.NURSE ---
Ariadna on her menses
[2020-08-16] MEDS: POTASSIUM CHLORIDE 20 MEQ TABLET 40 MEQ PO (13:17)
--- NOTE | 2020-08-16 13:58 | WPDINFPN2 ---
Progress Note: A&P Assessment and Plan (1) Leukocytosis: Code(s): D72.829 - Elevated white blood cell count, unspecified Status: Acute Assessment and Plan: leukocytosis, unknown cause, no infection identified. Viral etiology is possible, autoimmune illness also in the DDx. Myalgias are her most prominent symptom. WBC back to normal. REC studies in process, no empiric antimicrobials. Ok for discharge, with evaluation to continue as outpatient Subjective Date/time seen: 08/16/20 13:58 Interval history: some vomiting earlier Exam Narrative: Exam Narrative: looks well. No fever Const: General: no acute distress Eyes: General: appearance normal, both eyes and all related structures Resp: Effort & Inspection: normal respiratory effort Auscultation: clear to auscultation bilaterally Cardio: Rate: regular rate Rhythm: regular rhythm Heart sounds: no murmurs GI: Inspection: non-distended GI Palp: Yes Soft to palpation and No Tenderness to palpation present (GI) Skin: General skin exam: normal color and no rashes or lesions noted Objective Data Vital Signs Vital Signs: Vital Signs - 24 hr 08/15/20 14:00 08/15/20 14:48 08/15/20 18:00 Temperature 36.2 C L 36.5 C 36.1 C L Pulse Rate 108 H 113 H 100 Respiratory Rate 16 18 16 Blood Pressure 112/69 118/74 Pulse Oximetry 99 98 99 08/15/20 22:00 08/16/20 06:00 Temperature 35.6 C L 36.4 C Pulse Rate 93 83 Respiratory Rate 12 14 Blood Pressure 112/76 105/76 Pulse Oximetry 99 99 Intake/Output Intake/Output: Intake & Output 08/13/20 08/14/20 08/15/20 08/16/20 23:59 23:59 23:59 23:59 Intake Total 1250 1040 920 Output Total 1120 250 Balance 1250 -80 670 Meds/Results Medications: Active Medications Generic Name Dose Route Start Last Admin Trade Name Freq PRN Reason Stop Dose Admin Acetaminophen 650 mg 08/14/20 13:34 08/15/20 02:35 Acetaminophen 325 Mg Tablet PO 650 mg Q4H PRN Administration Mild Pain (1-3) or Fever Enoxaparin Sodium 40 mg 08/15/20 21:00 08/15/20 21:20 Enoxaparin 40 Mg/0.4 Ml Syringe SUB-Q 40 mg HS MARLENA Administration Ondansetron HCl 4 mg 08/14/20 13:34 08/16/20 09:16 Ondansetron Inj 4 Mg/2 Ml Vial IV PUSH 4 mg Q4H PRN Administration Nausea Tramadol HCl 50 mg 08/15/20 07:55 08/16/20 13:18 Tramadol Hcl (*Crx) 50 Mg Tablet PO 50 mg Q6H PRN Administration Pain Rated 4-6 Radiology Results: ITS Impressions Chest X-Ray 08/14/20 12:37 IMPRESSION: 1: NO ACUTE CARDIOPULMONARY DISEASE. Abdomen/Pelvis CT 08/14/20 13:51 IMPRESSION: 1. 4.3 cm mass in right ovary, most likely a hemorrhagic cyst. Pelvis ultrasound is recommended. Pelvic/Transvag US 08/14/20 17:59 IMPRESSION: 1. Right ovarian 4 cm lesion appearance most consistent with hemorrhagic cyst; consider 6 week follow-up pelvic sonogram. 2. Fibroid. Labs Labs: Laboratory Results - last 24 hr 08/16/20 08/16/20 04:45 04:45 WBC 6.9 RBC 3.92 L Hgb 11.3 L Hct 34.7 L MCV 88.5 MCH 28.8 MCHC 32.6 RDW 14.4 Plt Count 292 MPV 10.9 H Immature Gran % (Auto) 0.3 Neut % (Auto) 65.7 Lymph % (Auto) 25.5 [place] % (Auto) 4.5 Eos % (Auto) 3.6 Baso % (Auto) 0.4 Lymph # (Auto) 1.76 [place] # (Auto) 0.3 Eos # (Auto) 0.3 Baso # (Auto) 0.0 Abs Immat Gran (auto) 0.02 Absolute Neuts (auto) 4.5 Absolute Nucleated RBC 0.0 Nucleated RBC % 0.0 Sodium 135 L Potassium 3.4 Chloride 101 Carbon Dioxide 28 Anion Gap 6 L BUN 9 Creatinine 0.50 L Estim Creat Clear Calc 153 Estimated GFR > 60 Glucose 119 H Calcium 8.6 Total Bilirubin 0.3 AST 14 ALT 11 Alkaline Phosphatase 69 Total Protein 6.0 L Albumin 2.8 L
[2020-08-16 14:00] VITALS: BP 124/68; PULSE 77; RESP 18; TEMP 36.2; O2SAT 100
--- NOTE | 2020-08-16 16:11 | PM.IMPN ---
Progress Note: A&P Assessment and Plan (1) Systemic inflammatory response syndrome: Code(s): R65.10 - Systemic inflammatory response syndrome (SIRS) of non-infectious origin without acute organ dysfunction Status: Acute Assessment and Plan: Culture negative urine and blood. white count has fallen to normal. Rehydrated but still some nausea this am CK normal with elevated sed rate of 56. Echo normal function and valves Suspect either viral or rheumatologic as ID does . If does better today can d/c am (2) Myalgia: Code(s): M79.10 - Myalgia, unspecified site Status: Acute Assessment and Plan: As above CK normal with Aldolase pending and sed rate slightly elevated. Nonspecific finding at this point (3) Leukocytosis: Code(s): D72.829 - Elevated white blood cell count, unspecified Status: Acute Assessment and Plan: Probable stress from nausea vomiting. White count dropped to 6.9 today. (4) Mass of right ovary: Code(s): N83.8 - Other noninflammatory disorders of ovary, fallopian tube and broad ligament Status: Acute Assessment and Plan: Sees to be simple hemorrhagic cyst will need follow-up in the future (5) DVT prophylaxis: Code(s): Z29.9 - Encounter for prophylactic measures, unspecified Status: Acute Assessment and Plan: lovenox Subjective Date/time seen: 08/16/20 16:11 Interval history: Date of visit 08/16. 34-year-old previously healthy white female admitted with myalgias, nausea and vomiting and malaise. Been using anti-inflammatories for the pain without relief. No recent travel or suggestion of any acute infectious process but had marked leukocytosis on admission. Today feels better but had emesis after breakfast and still sore with less pain, Exam Narrative: Exam Narrative: Blood pressure 124/68 pulse is 76 she is afebrile Neck supple no adenopathy thyromegaly carotid bruits Lungs clear no murmurs or gallops CV regular rate rhythm no murmurs slightly tacky Abdomen is soft nontender no masses BS slightly decreased Extremities without edema Integument no rash there is some [place]deras erythema still Objective Data Vital Signs Vital Signs: Vital Signs - 24 hr 08/15/20 18:00 08/15/20 22:00 08/16/20 06:00 Temperature 36.1 C L 35.6 C L 36.4 C Pulse Rate 100 93 83 Respiratory Rate 16 12 14 Blood Pressure 112/76 105/76 Pulse Oximetry 99 99 99 08/16/20 14:00 Temperature 36.2 C L Pulse Rate 77 Respiratory Rate 18 Blood Pressure 124/68 Pulse Oximetry 100 Intake/Output Intake/Output: Intake & Output 08/13/20 08/14/20 08/15/20 08/16/20 23:59 23:59 23:59 23:59 Intake Total 1250 1040 920 Output Total 1120 250 Balance 1250 -80 670 Meds/Results Medications: Active Medications Generic Name Dose Route Start Last Admin Trade Name Freq PRN Reason Stop Dose Admin Acetaminophen 650 mg 08/14/20 13:34 08/15/20 02:35 Acetaminophen 325 Mg Tablet PO 650 mg Q4H PRN Administration Mild Pain (1-3) or Fever Enoxaparin Sodium 40 mg 08/15/20 21:00 08/15/20 21:20 Enoxaparin 40 Mg/0.4 Ml Syringe SUB-Q 40 mg HS MARLENA Administration Ondansetron HCl 4 mg 08/14/20 13:34 08/16/20 09:16 Ondansetron Inj 4 Mg/2 Ml Vial IV PUSH 4 mg Q4H PRN Administration Nausea Tramadol HCl 50 mg 08/15/20 07:55 08/16/20 13:18 Tramadol Hcl (*Crx) 50 Mg Tablet PO 50 mg Q6H PRN Administration Pain Rated 4-6 Radiology Results: ITS Impressions Chest X-Ray 08/14/20 12:37 IMPRESSION: 1: NO ACUTE CARDIOPULMONARY DISEASE. Abdomen/Pelvis CT 08/14/20 13:51 IMPRESSION: 1. 4.3 cm mass in right ovary, most likely a hemorrhagic cyst. Pelvis ultrasound is recommended. Pelvic/Transvag US 08/14/20 17:59 IMPRESSION: 1. Right ovarian 4 cm lesion appearance most consistent with hemorrhagic cyst; consider 6 week follow-up pelvic sonogram. 2. Fibroid. La
[2020-08-16] MEDS: ENOXAPARIN 40 MG/0.4 ML SYRINGE SUB-Q (20:44)
[2020-08-16 20:58] VITALS: BP 121/75; PULSE 89; RESP 14; TEMP 36.4; O2SAT 99
[2020-08-17] MEDS: ACETAMINOPHEN 325 MG TABLET 650 MG PO ×2 (00:23→10:23)
[2020-08-17 05:21] LABS: Anion Gap 5 mmol/L (8-16); Blood Urea Nitrogen 12 mg/dL (7-17); Calcium 8.8 mg/dL (8.4-10.2); Carbon Dioxide 27 mmol/L (22-30); Chloride 101 mmol/L (98-107); Estimated CRCL calculation 100 ml/min; Estimated Glomerular Filt Rate > 60; Glucose 98 mg/dL (65-105); Sodium 133 mmol/L (137-145)
[2020-08-17 05:38] VITALS: BP 121/76; PULSE 77; RESP 12; TEMP 35.7; O2SAT 98
[2020-08-17 07:38] LABS: Erythrocyte Sedimentation Rate 85 mm/hr (0-20)
[2020-08-17] MEDS: traMADol HCL (*CRX) 50 MG TABLET PO (08:45)
--- NOTE | 2020-08-17 10:40 | PC.NURSE ---
Discharging home. Discharge instructions reviewed and given to patient. Prescription given to patient as well. IV removed. No other questions or concerns.
--- NOTE | 2020-08-17 17:32 | PM.DS ---
DS: Admitting Diagnosis Admitting Diagnosis Admitting Diagnosis: Nausea vomiting and leukocytosis DS: Discharge Diagnosis Discharge Diagnosis (1) Systemic inflammatory response syndrome: Code(s): R65.10 - Systemic inflammatory response syndrome (SIRS) of non-infectious origin without acute organ dysfunction Status: Acute Assessment and Plan: Culture negative urine and blood. white count fell to normal. Rehydrated and nausea slowly subsided CK normal with elevated sed rate . Echo normal function and valves Suspect either viral or rheumatologic as ID does . ANSLEY still pending (2) Myalgia: Code(s): M79.10 - Myalgia, unspecified site Status: Acute Assessment and Plan: As above CK normal with Aldolase pending and sed rate elevated. Nonspecific finding at this point (3) Leukocytosis: Code(s): D72.829 - Elevated white blood cell count, unspecified Status: Acute Assessment and Plan: Probable stress from nausea vomiting. White count dropped to normal with normal differential (4) Mass of right ovary: Code(s): N83.8 - Other noninflammatory disorders of ovary, fallopian tube and broad ligament Status: Acute Assessment and Plan: simple hemorrhagic cyst on US, will need follow-up in the future DS: Summary Hospital Course Hospital Course: 34-year-old female admitted with leukocytosis, myalgias, nausea and vomiting. With hydration symptoms slowly resolved with still some discomfort and shoulders by the time of discharge but WBC returned to normal and nausea and vomiting subsided. Cultures blood in urine were all negative, echocardiogram normal, COVID swab negative, ANSLEY still pending at discharge. Seen in consultation by ID, Neurology, and Hematology Follow-up with primary care for results of ANSLEY but suspect all viral syndrome Time Spent with Patient Time attestation: Total time spent providing and/or coordinating discharge services: 35 minutes Exam Narrative: Exam Narrative: Condition on discharge Blood pressure 120/76 pulse 76 afebrile saturating 98% on room air Neck supple no adenopathy thyromegaly Lungs clear CV regular rate rhythm no murmurs Abdomen is soft nontender Extremities without edema distal pulse 2 + He is experiencing less pain and able to abduct her shoulders actively. She is stable and able to be discharged home DS: Data Data Completed and Pending Labs on day of discharge: Labs from last 24 hours 08/17/20 08/17/20 04:11 04:11 ESR 85 H Sodium 133 L Potassium 4.0 Chloride 101 Carbon Dioxide 27 Anion Gap 5 L BUN 12 Creatinine 0.80 Estim Creat Clear Calc 100 Estimated GFR > 60 Glucose 98 Calcium 8.8 C-Reactive Protein 7.0 H Preliminary micro results at discharge 08/14/20 12:59 Blood Culture - Preliminary Blood 08/14/20 12:57 Blood Culture - Preliminary Blood Discharge Plan Discharge Attending physician on discharge: Bro Baez Consulting providers: Hank Baron ; Hank Campos ; Waqas Reynoso ; Raoul Jon Discharging Clinician: Bro Baez Patient Disposition: Home, Self-Care Activity: as tolerated Diet: regular Patient Instructions: Pain Management (DC) Stand Alone Forms: General Discharge Information Follow-up/Referrals: Hank Baron MD [Physician] - 3 Weeks Discharge Medications: New tramadol 50 mg Tablet 50 mg PO Q6H PRN (Reason: Pain Rated 4-6) Qty: 30 RF: 0 Continued ondansetron 4 mg tablet,disintegrating 4 mg PO Q6H PRN (Reason: nausea and vomiting) Qty: 15 RF: 0 acetaminophen 500 mg Capsule 500 mg PO Q6H PRN (Reason: Pain) RF: 0 Discontinued cephalexin [Keflex] 500 mg capsule 500 mg PO Q12H Qty: 14 RF: 0 Date of admission: 08/14/20 14:15 Primary Care Provider: PHYSICIAN,POCKET MARKER Admitting Provider: Chen Tsang Attending physician on admission: Chen Tsang
[2020-08-18 22:05] LABS: Vitamin D 1,25 (OH)2 Total 36 pg/mL (18-72); Vitamin D2 1,25 (OH)2 <8 pg/mL; Vitamin D3 1,25 (OH)2 36 pg/mL
[2020-08-23 05:19] LABS: Aldolase 8.8 U/L (<=8.1)
== END 2020-08-17 11:00 | disposition home or self-care (01) ==
LOC: ANHED 13:34 → ANH3MEDSUR 08-15 00:04 → ANHTRC 08-16 00:19 → ANH3MEDSUR 08-18 16:26 → ANHTRC 08-18 16:26
PROVIDERS: Physician Assistant; Admitting Provider Family Medicine; Emergency Provider Emergency Medicine; Visit Provider Internal Medicine
DX: D72.829 Elevated white blood cell count, unspecified (principal); R65.10 Systemic inflammatory response syndrome (SIRS) of non-infectious origin without acute organ dysfunction; M79.10 Myalgia, unspecified site; N83.8 Other noninflammatory disorders of ovary, fallopian tube and broad ligament; Z20.828 Contact with and (suspected) exposure to other viral communicable diseases
CPT/HCPCS: 36415; 71045; 74177; 76830; 76856; 80048; 80053; 81001; 81025; 82085; 82306; 82550; 82652; 83605; 83615; 83690; 84439; 84443; 85025; 85380; 85652; 86038; 86039; 86140; 87040; 87086; 87635; 93005; 93306; 96360; 96372; 96374; 99285; A9270; C9803; G0378; J1650; J2405; J7030; J7120; Q9967; U0003

== ENCOUNTER 2020-08-27 10:20 | Emergency (ER) | payer MEDICAID, SELFPAY ==
[2020-08-27] VITALS (8 sets, daily range): BP systolic 157–170; BP diastolic 92–115; PULSE 73–103; RESP 20–22; TEMP 36.8; O2SAT 95–100
--- NOTE | ~2020-08-27 | XR_ITS ---
EXAMINATION: XR chest 2V EXAM DATE: 08/27/2020 10:41 INDICATION: Bilateral leg swelling, shortness of breath. TECHNIQUE: Portable AP frontal chest x-ray was obtained. Comparison is made to prior examination from 08/14/2020. FINDINGS: Patchy bibasilar infiltrate (atelectasis an/or infection). Small bilateral pleural effusion s. No pneumothorax. Cardiomediastinal silhouette is normal. Mild lumbar scoliosis. The airspace disea se and pleural effusions have developed compared to 08/14 exam. IMPRESSION: 1. Patchy bibasilar atelectasis or edema. 2. Small pleural effusions. Reviewed, dictated and finalized at location A. ER AND PRESSER
--- NOTE | 2020-08-27 10:30 | ECG_ITS ---
Measurements Intervals Evans Rate: 93 P: 52 HI: 129 QRS: 59 QRSD: 79 T: 52 QT: 339 QTc: 422 Interpretive Statements SINUS RHYTHM BASELINE WANDER- III, V4-V6 NORMAL ECG Electronically Signed On 08-27-2020 15:05:55 LOCKER ROOM MANAGER by Oscar Gurrola D.O.
--- NOTE | 2020-08-27 10:38 | ED.GENADULT ---
HPI - General Adult General Chief complaint: Unspecified Stated complaint: swelling all over Time Seen by Provider: 08/27/20 10:33 Source: patient and family (mother) Mode of arrival: ambulatory Limitations: no limitations History of Present Illness HPI narrative: Patient was released from this facility on August 17 after being evaluated and treated for an undetermined systemic inflammatory response. She had nausea and vomiting, mild swelling of her lower extremities, elevated ESR and leukocytosis. Her white count had normalized at the time of discharge. It was recommended that she follow-up with truck sales manager. Since that time her lower extremities have continued to swell and now involves her entire legs and pelvis. Her clothes are tighter in her abdomen. Her hands continue to swell and have peeled. She denies any lip or tongue swelling, no difficulty swallowing and no vocal changes. No family history of unexplained angioedema. Onset (ago): day(s) Quality: aching Pain Consistency: constant Treatments prior to arrival: none Related Data Home Medications Medication Instructions Recorded Confirmed acetaminophen 500 mg PO Q6H PRN 08/14/20 08/14/20 Allergies Allergy/AdvReac Type Severity Reaction Status Date / Time tramadol AdvReac Nausea and Verified 08/27/20 10:29 Vomiting Review of Systems Review of Systems: All systems reviewed & are unremarkable except as noted in HPI and below PMFSH Past Medical History Medical History No pertinent past medical history Surgical History Surgical History History of bunionectomy of left great toe (~2009) Family History Family History Father Hypertension Heart disease Mother No pertinent past medical history Sibling Harrison syndrome Social History Social History Social History: The patient is currently living in [place] with her parents and brother. Prior to that she was living in [place]. 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 She denies alcohol, tobacco, and illicit substance abuse. She designates her mother as her surrogate decision maker and wishes to be a full code. Gender identity (if verbalized by the patient): Female Spiritual care concerns: No Exam Const: General: cooperative, comfortable and no acute distress HENMT: Head: normal to inspection Mouth: Yes Normal oral and palatal mucosa present, Yes lip normal and Yes oropharynx normal Throat: posterior oropharynx normal and uvula midline Eyes: General: appearance normal, both eyes and all related structures Neck: Neck: normal visual inspection and no lymphadenopathy Resp: Effort & Inspection: normal respiratory effort and able to speak in complete sentences Auscultation: rales (bases, faint. otherwise good aeration) bilateral Cardio: Jugular venous distension: no JVD Rate: regular rate Rhythm: regular rhythm GI: Inspection: Abdominal wall edema (diffuse fullness of abdomen) Percussion: Yes normal to percussion Auscultation: normal bowel sounds Skin: General skin exam: normal color, no rashes or lesions noted and erythema (both hands, mild peeling) Neuro: General: patient oriented x3 and moves all extremities Extrem: General: full ROM, capillary refill normal, edema (hands, mild erythema and peeling) bilateral and pedal edema bilaterally (involving entire leg bilat) pitting and 3+ Psych: Appearance: grossly normal and well kempt Speech and movement: Clear speech present Course Course Emergency Course: Review of x-ray reveals bilateral bibasilar atelectasis and mild pleural effusions. BNP is elevated to greater than 2000 and a otherwise healthy 34-year-old. Spoke with Dr. Nath from the hospitalist team he would like an ANSLEY drawn as wel
[2020-08-27 10:41] LABS: Basophils Absolute Auto 0.2 K/mm3 (0.0-0.1); Basophils Percent Auto 1.7 % (0.2-1.2); Eosinophils Absolute Auto 0.3 K/mm3 (0-0.3); Eosinophils Percent Auto 3.9 % (0-4.4); Hematocrit 35.6 % (37.0-47.0); Hemoglobin 11.3 g/dL (12.0-15.0); Immature Granulocyte Absolute 0.03 K/mm3 (0.00-0.031); Immature Granulocyte Percent A 0.3 % (0-0.5); Lymphocytes Absolute Auto 2.19 K/mm3 (0.9-3.2); Lymphocytes Percent Auto 24.9 % (18.3-44.2); Mean Corpuscular HGB Conc 31.7 g/dl (32-36); Mean Corpuscular Hemoglobin 28.6 pg (26-34); Mean Corpuscular Volume 90.1 fl (80-100); Mean Platelet Volume 9.3 fl (7.4-10.4); Monocytes Absolute Auto 0.6 K/mm3 (0.1-0.6); Monocytes Percent Auto 6.7 % (2.6-8.5); Neutrophils Absolute Auto 5.5 K/mm3 (1.3-6.7); Neutrophils Percent Auto 62.5 % (45.5-73.1); Platelet Count Result 525 k/mm3 (150-375); Red Blood Count 3.95 M/mm3 (4.2-5.4); Red Cell Distribution Width 15.3 % (11.5-14.5); White Blood Count 8.8 K/mm3 (4.5-10.0)
[2020-08-27 10:49] LABS: INR 0.9
[2020-08-27 10:50] LABS: Anion Gap 7 mmol/L (8-16); Blood Urea Nitrogen 22 mg/dL (7-17); Carbon Dioxide 25 mmol/L (22-30); Chloride 109 mmol/L (98-107); Estimated CRCL calculation 104 ml/min; Estimated Glomerular Filt Rate > 60; Glucose 93 mg/dL (65-105); Partial Thromboplastin Time 31.4 SECONDS (22.3-36.8); Potassium 4.7 mmol/L (3.4-5.0); Sodium 141 mmol/L (137-145)
[2020-08-27 11:02] LABS: NT Pro B Type Natriuretic Pept 2080 PG/ML (5-100); Troponin I < 0.012 ng/mL (0.000-0.034)
[2020-08-27 11:25] LABS: Erythrocyte Sedimentation Rate 126 mm/hr (0-20)
[2020-08-27 13:33] LABS: Add Urine Microscopic? YES; Appearance Urine Clear (Clear); Bacteria Urine Trace /hpf; Bilirubin Urine Negative (Negative); Blood Urine 2+ (Negative); Color Urine Yellow (Yellow); Glucose Urine UA Negative (Negative); Ketones Urine Negative (Negative); Leukocyte Esterase Ur 3+ LEU/UL (Negative); Mucus Urine Rare /lpf; Nitrate Urine Negative (Negative); Protein Urine 3+ mg/dL (Negative); RBC Urine 21-50 /hpf (0-2); Specific Grav Ur 1.016 (1.001-1.035); Squamous Epithelial Cell Urine Many /hpf (Few); Urobilinogen Urine Negative mg/dL (<2.0)
[2020-08-27] MEDS: FUROSEMIDE INJ 40 MG/4 ML VIAL IV PUSH (15:47)
[2020-08-27 16:31] LABS: Creatinine Urine 94.1 mg/dL; Total Protein Urine Random 140 mg/dL; Ur Ttl Prot Creatinine Ratio 1.49 mg/mg (0-0.20)
[2020-08-27 17:38] LABS: Alanine Aminotransferase 12 U/L (4-35); Albumin Level 3.1 g/dL (3.5-5.1); Alkaline Phosphatase 85 U/L (38-126); Anion Gap 5 mmol/L (8-16); Aspartate Amino Transferase 22 U/L (14-36); Bilirubin,Total 0.4 mg/dL (0.2-1.3); Blood Urea Nitrogen 18 mg/dL (7-17); Calcium 8.7 mg/dL (8.4-10.2); Carbon Dioxide 25 mmol/L (22-30); Chloride 109 mmol/L (98-107); Estimated CRCL calculation 118 ml/min; Estimated Glomerular Filt Rate > 60; Glucose 88 mg/dL (65-105); Potassium 4.1 mmol/L (3.4-5.0); Sodium 139 mmol/L (137-145)
== END 2020-08-27 17:44 | disposition home or self-care (01) ==
PROVIDERS: Physician Assistant; Emergency Provider Emergency Medicine
DX: R60.1 Generalized edema (principal); N06.9 Isolated proteinuria with unspecified morphologic lesion
CPT/HCPCS: 36415; 71046; 80048; 80053; 81001; 82570; 83880; 84156; 84443; 84484; 85025; 85610; 85652; 85730; 86038; 86039; 87086; 87088; 93005; 96374; 99284; J1940

== ENCOUNTER 2020-09-19 11:34 | Outpatient (CLI) | payer MEDICAID, SELFPAY ==
[2020-09-19 11:47] LABS: Basophils Absolute Auto 0.1 K/mm3 (0.0-0.1); Eosinophils Absolute Auto 0.1 K/mm3 (0-0.3); Eosinophils Percent Auto 0.9 % (0-4.4); Hematocrit 38.4 % (37.0-47.0); Hemoglobin 12.3 g/dL (12.0-15.0); Immature Granulocyte Absolute 0.02 K/mm3 (0.00-0.031); Immature Granulocyte Percent A 0.3 % (0-0.5); Mean Corpuscular Hemoglobin 28.3 pg (26-34); Mean Corpuscular Volume 88.5 fl (80-100); Mean Platelet Volume 10.1 fl (7.4-10.4); Monocytes Absolute Auto 0.4 K/mm3 (0.1-0.6); Monocytes Percent Auto 4.9 % (2.6-8.5); Neutrophils Absolute Auto 4.5 K/mm3 (1.3-6.7); Neutrophils Percent Auto 57.9 % (45.5-73.1); Platelet Count Result 323 k/mm3 (150-375); Red Blood Count 4.34 M/mm3 (4.2-5.4); Red Cell Distribution Width 14.2 % (11.5-14.5); White Blood Count 7.7 K/mm3 (4.5-10.0)
== END 2020-09-19 11:35 | disposition home or self-care (01) ==
LOC: ANHLAB 11:36
PROVIDERS: Visit Provider Internal Medicine Hematology & Oncology
DX: D72.829 Elevated white blood cell count, unspecified (principal)
CPT/HCPCS: 36415; 85025

== ENCOUNTER → 2020-10-09 01:07 | Outpatient (CLI) | payer MEDICAID, SELFPAY ==
[2020-10-09 18:28] LABS: SARS-CoV-2 RNA PCR Negative
== END ==
PROVIDERS: Visit Provider Internal Medicine Nephrology
DX: Z01.812 Encounter for preprocedural laboratory examination (principal); Z20.822 Contact with and (suspected) exposure to COVID-19
CPT/HCPCS: C9803; U0003; U0005

== ENCOUNTER 2020-10-12 07:41 | Outpatient (CLI) | payer MEDICAID, SELFPAY ==
[2020-10-06 17:33] VITALS: BMI 26.6
[2020-10-12] VITALS (12 sets, daily range): BP systolic 110–132; BP diastolic 72–87; PULSE 75–91; RESP 12–20; TEMP 36.7; O2SAT 100
--- NOTE | ~2020-10-12 | US_ITS ---
EXAMINATION: US biopsy renal DATE: 10/12/2020 08:32 INDICATION: Proteinuria. TECHNIQUE: The procedure including the risks, benefits, and alternatives was discussed with the patie nt. Risks discussed included bleeding and infection. The patient understood the risks and agreed to p roceed. A timeout was performed to verify the patient's name, date of , and procedure to be p erformed. The skin overlying the left kidney was prepped and draped in usual sterile fashion. Anest hetic was administered with 1% lidocaine subcutaneously. An 18 gauge core biopsy needle was then use d to obtain 3 core biopsy specimens under continuous sonographic guidance. The entry site was cleaned and dressed. There were no immediate complications. FINDINGS: Ultrasound images demonstrate the needle in the kidney. IMPRESSION: 1. Ultrasound-guided random left kidney core needle biopsy. Reviewed, dictated and finalized at location A. L FENCE ERECTOR
--- NOTE | 2020-10-12 12:08 | SUR.PHASEII ---
1208 - updated Dr. Crouch on pt's status. ok to send home at 12:30.
== END 2020-10-12 12:32 | disposition home or self-care (01) ==
PROVIDERS: Radiology Diagnostic Radiology; PCP Family Medicine; Visit Provider Internal Medicine Nephrology
DX: R60.1 Generalized edema (principal); N28.9 Disorder of kidney and ureter, unspecified
CPT/HCPCS: 50200; 76942; 88300; 88305; 88313; 88329; 88346; 88348; 88350